=== PATIENT | female | born 1990 | race Hispanic/Latino ===

== ENCOUNTER 2017-06-06 16:43 | Emergency (ER) | payer BC, OTHER ==
[2017-06-06 16:59] VITALS: O2SAT 99
[2017-06-06 17:41] LABS: BASO # 0.1 K/uL (0.0-0.2); BASO % 0.6 % (0.0-2.0); EOS # 0.1 K/uL (0.0-0.7); EOS % 1.7 % (0.0-4.0); HEMATOCRIT 34.9 % (34.0-47.0); LYMPH # 2.1 K/uL (1.0-4.3); MEAN CELL VOLUME 88.1 fL (81.0-99.0); MEAN CORPUSCULAR HEMOGLOBIN 29.9 pg (27.0-31.0); MEAN CORPUSCULAR HGB CONC 33.9 g/dL (33.0-37.0); MEAN PLATELET VOLUME 7.8 fL (7.2-11.7); MONO # 0.5 K/uL (0.0-0.8); RED CELL DISTRIBUTION WIDTH 12.8 % (11.5-14.5); WHITE BLOOD COUNT 8.2 K/uL (4.8-10.8)
[2017-06-06 17:47] LABS: URINE BACTERIA RARE (<OCC); URINE BILIRUBIN NEGATIVE (NEGATIVE); URINE BLOOD NEGATIVE (NEGATIVE); URINE COLOR Straw (YELLOW); URINE GLUCOSE (UA) NORMAL (Normal); URINE KETONE NEGATIVE (NEGATIVE); URINE LEUKOCYTE ESTERASE NEG Leu/uL (Negative); URINE PROTEIN NEGATIVE (NEGATIVE); URINE UROBILINOGEN NORMAL mg/dL (0.2-1.0); WBC URINE 1 /hpf (0-5)
[2017-06-06 18:06] LABS: CHLORIDE 101 mmol/L (98-107); POTASSIUM 3.6 mmol/L (3.6-5.2); SODIUM 136 mmol/L (132-148)
[2017-06-06 18:08] LABS: ALB/GLOB RATIO 1.3 (1.0-2.1); ALKALINE PHOSPHATASE 57 U/L (38-126); AST/SGOT 27 U/L (14-36); BILIRUBIN,TOTAL 0.6 mg/dL (0.2-1.3); CARBON DIOXIDE 24 mmol/L (22-30); GFR AFRICAN-AMERICAN > 60; TOTAL PROTEIN 7.2 g/dL (6.3-8.3)
[2017-06-06 18:09] LABS: ALT/SGPT 31 U/L (9-52); BLOOD UREA NITROGEN 14 mg/dL (7-17); GLUCOSE,RANDOM 89 mg/dL (65-105)
--- NOTE | 2017-06-06 18:19 | C.PDOC ---
History Of Present Illness 27 year old female presents to ED with complaints of abdominal pain since yesterday. She reports pain is in midabdomen and radiates to her sides, she feels bloated and pain is cramping in nature. Also reports nausea. She states she is unsure if , took test at home and it looked faint. She also reports hard small stool this morning and last bowel movement was 4 days prior. Her LMP was 05/12/17. Denies any fever, vomiting, dysuria or discharge. abd: generalized nonfocal tenderness Time Seen by Provider: 06/06/17 17:17 Chief Complaint (Nursing): Abdominal Pain History Per: Patient History/Exam Limitations: no limitations Onset/Duration Of Symptoms: Days (1) Current Symptoms Are (Timing): Still Present Severity: Mild Location Of Pain/Discomfort: Diffuse Quality Of Discomfort: Burning, "Pain" Associated Symptoms: Nausea, Constipation Abnormal Vaginal Bleeding: No Past Medical History Reviewed: Historical Data, Nursing Documentation, Vital Signs Vital Signs: Last Vital Signs Temp 98.4 F 06/06/17 16:56 Pulse 99 H 06/06/17 16:56 Resp 16 06/06/17 16:56 BP 125/86 06/06/17 16:56 Pulse Ox 99 06/06/17 18:42 - Medical History PMH: Depression Surgical History: No Surg Hx Family History: States: No Known Family Hx - Social History Hx Alcohol Use: No Hx Substance Use: No - Immunization History Hx Tetanus Toxoid Vaccination: No Hx Influenza Vaccination: No Hx Pneumococcal Vaccination: No Review Of Systems Except As Marked, All Systems Reviewed And Found Negative. Constitutional: Negative for: Fever Gastrointestinal: Positive for: Nausea, Abdominal Pain. Negative for: Vomiting Genitourinary: Negative for: Dysuria, Vaginal Discharge Physical Exam - Physical Exam Appears: Non-toxic, No Acute Distress Skin: Warm, Dry, No Rash Head: Atraumatic, Normacephalic Eye(s): bilateral: Normal Inspection Oral Mucosa: Moist Neck: Normal ROM Chest: Symmetrical, No Tenderness Cardiovascular: Rhythm Regular, No Murmur Respiratory: Normal Breath Sounds, No Rales, No Rhonchi, No Wheezing Gastrointestinal/Abdominal: Soft, Tenderness (Generalized nonfocal tenderness.) , No Mass, No Distention, No Guarding, No Rebound, No Hernia Back: Normal Inspection, No CVA Tenderness, No Vertebral Tenderness, No Paraspinal Tenderness Extremity: Bilateral: Atraumatic, Normal Color And Temperature, Normal ROM Neurological/Psych: Oriented x3, Normal Speech Gait: Steady ED Course And Treatment - Laboratory Results Result Diagrams: 06/06/17 17:38 06/06/17 17:38 Lab Interpretation: No Acute Changes O2 Sat by Pulse Oximetry: 99 (RA ) Pulse Ox Interpretation: Normal Medical Decision Making Medical Decision Making: Impression: abd pain poss constipation, r.o Plan: * X-Ray - Abdomen * CBC * CMP * HCG * Urinalysis * Bentyl PO * Tylenol PO Progress: Labs normal UA negative for . BHCG negative. Xray shows fecal retention Patient reevaluated has no fever and resting in no distress. Discuss results with patient. Recommend increase fiber intake to help with constipation. Patient feels comfortable going home and will be discharged. Patient given follow up instructions. Instructed to return to ER if symptoms worsen or new symptoms arise. Disposition Counseled Patient/Family Regarding: Studies Performed, Diagnosis, Need For Followup, Rx Given - Disposition Referrals: [facility] [Outside] [facility] [Outside] Disposition: HOME/ ROUTINE Disposition Time: 18:37 Condition: GOOD Additional Instructions: You were evaluated for abdominal pain today. Lab work and urine was normal. Negative test. Xray shows constipation. Please take the following medications to help with constipation Magnesium citrate and Colace. Bentyl is for pain. Please drink more fluids, rest and increase fiber intake May follow up with your doctor or clinic for further care Prescriptions: Dicyclomine [Dicyclomine HCl] 10 mg PO Q6 #20 cap Docusate [Colace] 100 mg PO Q8 #30 cap Magnesium Citrate [Citrate of Mag] 300 ml PO ONCE #1 bottle Instructions: Constipation (DC), High Fiber Diet (ED) Forms: [facility] (Arabic) - POA Present On Arrival: None - Clinical Impression Clinical Impression: Constipation, Abdominal pain - PA / SMOG TECHNICIAN / Resident Statement MD/DO has reviewed & agrees with the documentation as recorded. - Scribe Statement The provider has reviewed the documentation as recorded by the Scribe Linda Angeles All medical record entries made by the Scribe were at my direction and personally dictated by me. I have reviewed the chart and agree that the record accurately reflects my personal performance of the history, physical exam, medical decision making, and the department course for this patient. I have also personally directed, reviewed, and agree with the discharge instructions and disposition.
--- NOTE | 2017-06-06 18:37 | RAD ---
HISTORY: pain, constipation COMPARISON: CT abdomen and pelvis without oral or IV contrast performed 06/03/16 FINDINGS: BOWEL: Nonobstructive bowel gas pattern. Moderate constipation. BONES: No acute osseous abnormality. OTHER FINDINGS: None. IMPRESSION: Moderate constipation.
[2017-06-06 18:54] VITALS: BP 128/81; PULSE 85; RESP 18; TEMP 98.9
== END 2017-06-06 18:56 | disposition home or self-care (01) ==
LOC: C.ER 16:43
DX: K59.00 Constipation, unspecified (principal)